=== PATIENT | male | born 1935 | race African-American/Black ===

== ENCOUNTER 2016-12-11 10:16 | Emergency (ER) | payer MEDICARE, OTHER ==
[~2016-12-11] VITALS: Ht 172.7 cm; Wt 95.3 kg
[~2016-12-11 10:16] MED LIST: AMLO10TA2 PO; ATOR10TA PO; ATOR10TA60 PO; FURO20TA3 PO; GLIP10TA13 PO; HYDR-2758 PO; INSU100C SQ; INSU100I11 SQ; INSU100V SQ; INSU100V8 SQ; LISI-338 PO; LOSA100T6 PO; LOVA40TA PO; METF-620 PO; METF850T2 PO; PIOG30TA41 PO; PROM118S2 PO; TRIA1TAB3 PO
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
[2016-12-11 13:39] VITALS: BP 155/75
== END 2016-12-11 13:39 | disposition home or self-care (01) ==
LOC: ER 10:24
DX: M54.2 Cervicalgia (principal); E11.40 Type 2 diabetes mellitus with diabetic neuropathy, unspecified; Z87.891 Personal history of nicotine dependence; V49.49XA Driver injured in collision with other motor vehicles in traffic accident, initial encounter; Y93.89 Activity, other specified; Y99.8 Other external cause status; Y92.410 Unspecified street and highway as the place of occurrence of the external cause
CPT/HCPCS: 72050; 99284

== ENCOUNTER 2017-12-06 07:52 | Inpatient (IN) | payer MEDICARE ==
[2017-12-06] MEDS ORDERED: ERTAPENEM 1GM IVPB FOR OMNI 50 ML IV (08:30)
[2017-12-06 08:34] LABS: POC GLUCOSE 143 mg/dL (70-99)
[2017-12-06] MEDS ORDERED: ERTAPENEM 1 GM IV (09:00)
[2017-12-06] MEDS: IV RINGERS,LACTATED 1000ML 1,000 ML IV (09:01)
[2017-12-06] MEDS ORDERED: DEXAMETHASONE SOD PHOS 4 MG/ML VIAL (10:09)
[2017-12-06] MEDS ORDERED: methylPREDNISolone ACETATE 40 MG/ML VIAL. (10:09)
[2017-12-06] MEDS ORDERED: DEXAMETHASONE SOD PHOS 20 MG/5 ML VIAL. (10:09)
[2017-12-06] MEDS ORDERED: ONDANSETRON PF 4 MG/2 ML VIAL. (10:09)
[2017-12-06] MEDS ORDERED: LIDOCAINE 2% PF Vial for OR 5 ML VIAL. (10:09)
[2017-12-06] MEDS ORDERED: fentaNYL PF VIAL 100 MCG/2 ML VIAL (10:09)
[2017-12-06] MEDS ORDERED: PROPOFOL 20 ML IV (10:09)
[2017-12-06] MEDS ORDERED: POVIDONE-IODINE 10% TOPICAL OINTMENT 28GM TUBE. TP (10:10)
[2017-12-06] MEDS ORDERED: GELATIN SPONGE SIZE 12-7MM SPONGE. (11:02)
[2017-12-06 11:13] LABS: POC GLUCOSE 131 mg/dL (70-99)
[2017-12-06] MEDS: ERTAPENEM 1GM IVPB FOR OMNI 50 ML IV (11:31)
[2017-12-06] MEDS: BUPIVACAINE 0.5% 50 ML VIAL. (11:37)
[2017-12-06] MEDS: LIDOCAINE 1% PF 30 ML VIAL. (11:37)
[2017-12-06] MEDS: THROMBIN TOPICAL 5,000 UNIT VIAL. (12:00)
[2017-12-06] MEDS: GELATIN SPONGE SIZE 100. (12:00)
[2017-12-06] MEDS: SURGICEL FIBRILLAR 1X2 EACH. (12:00)
[2017-12-06] MEDS ORDERED: ZOLPIDEM 5 MG TABLET. PO (13:45)
[2017-12-06] MEDS ORDERED: CALCIUM CARBONATE 500 MG TAB.CHEW PO (13:45)
[2017-12-06] MEDS ORDERED: MAGNESIUM HYDROXIDE 2,400 MG/30 ML ORAL.SUSP. PO (13:45)
[2017-12-06] MEDS ORDERED: ONDANSETRON PF 4 MG/2 ML VIAL. IV (13:45)
[2017-12-06] MEDS ORDERED: HYDROcodone/APAP 5/325MG 1 TAB TABLET PO ×2 (13:45→16:45)
[2017-12-06] MEDS ORDERED: ACETAMINOPHEN 325 MG TABLET. PO (13:45)
[2017-12-06 14:03] LABS: POC GLUCOSE 107 mg/dL (70-99)
[2017-12-06 16:55] LABS: POC GLUCOSE 167 mg/dL (70-99)
[2017-12-06 18:23] LABS: POC GLUCOSE 214 mg/dL (70-99)
[2017-12-06] MEDS: INSULIN LISPRO 300 UNITS/3 ML INSULN.PEN. SQ (18:28)
[2017-12-06] MEDS: HYDROcodone/APAP 5/325MG 1 TAB TABLET PO (18:29)
[2017-12-06 20:35] LABS: POC GLUCOSE 192 mg/dL (70-99)
[2017-12-06] MEDS: ATORVASTATIN CALCIUM 10 MG TABLET. PO (21:27)
[2017-12-06] MEDS: SENNOSIDES/DOCUSATE 8.6/50MG TABLET. PO (21:27)
[2017-12-06] MEDS: INSULIN GLARGINE 300 UNITS/3 ML INSULN.PEN. SQ (21:34)
[2017-12-07 04:46] LABS: ANION GAP 6 (6-14); BLOOD UREA NITROGEN 42 mg/dL (8-26); CALCIUM 8.7 mg/dL (8.5-10.1); CARBON DIOXIDE 26 mmol/L (21-32); CHLORIDE 110 mmol/L (98-107); CREATININE 1.7 mg/dL (0.7-1.3); GLUCOSE 60 mg/dL (70-99); POTASSIUM 5.2 mmol/L (3.5-5.1); SODIUM 142 mmol/L (136-145)
[2017-12-07] MEDS ORDERED: ONDANSETRON PF 4 MG/2 ML VIAL. IV (07:00)
[2017-12-07] MEDS ORDERED: LIDOCAINE 1% PF 2 ML VIAL. ID (07:00)
[2017-12-07] MEDS: IV RINGERS,LACTATED 1000ML 1,000 ML IV (07:00)
[2017-12-07] MEDS ORDERED: MORPHINE SULFATE 2 MG/ML DISP.SYRIN. IV (07:00)
[2017-12-07] MEDS ORDERED: fentaNYL PF VIAL 100 MCG/2 ML VIAL IV ×2 (07:00)
[2017-12-07] MEDS ORDERED: PROCHLORPERAZINE 10 MG/2 ML VIAL. IV (07:00)
[2017-12-07 08:03] LABS: POC GLUCOSE 54 mg/dL (70-99)
[2017-12-07] MEDS: FUROSEMIDE 40 MG TABLET. PO (09:14)
[2017-12-07] MEDS: SENNOSIDES/DOCUSATE 8.6/50MG TABLET. PO ×2 (09:14→20:39)
[2017-12-07 09:15] LABS: POC GLUCOSE 144 mg/dL (70-99)
[2017-12-07] MEDS: amLODIPine BESYLATE 10 MG TABLET PO (09:15)
[2017-12-07] MEDS: LOSARTAN POTASSIUM 50 MG TABLET. PO (09:16)
[2017-12-07] MEDS: INSULIN GLARGINE 300 UNITS/3 ML INSULN.PEN. SQ ×2 (09:23→21:00)
[2017-12-07 11:47] LABS: POC GLUCOSE 115 mg/dL (70-99)
[2017-12-07] MEDS: INSULIN LISPRO 300 UNITS/3 ML INSULN.PEN. SQ ×2 (12:00→17:39)
[2017-12-07 13:03] LABS: POC GLUCOSE 154 mg/dL (70-99)
[2017-12-07] MEDS ORDERED: ERTAPENEM 1 GM in IV NORMAL SALINE 50ML 50 ML IV (14:00)
[2017-12-07] MEDS: MEROPENEM 1 GM in IV NORMAL SALINE 100ML 100 ML IV ×2 (14:47→20:40)
[2017-12-07 16:31] LABS: POC GLUCOSE 175 mg/dL (70-99)
[2017-12-07] MEDS: ATORVASTATIN CALCIUM 10 MG TABLET. PO (20:39)
[2017-12-07 20:50] LABS: POC GLUCOSE 158 mg/dL (70-99)
[2017-12-08 05:37] LABS: ADD MAN DIFF? NO
[2017-12-08 05:41] LABS: BASO % 1 % (0-3); EOS # 0.1 x10^3/uL (0.0-0.7); EOS % 2 % (0-3); HEMATOCRIT 27.5 % (39.0-53.0); HEMOGLOBIN 8.9 g/dL (13.0-17.5); LYMPH # 1.8 x10^3/uL (1.0-4.8); LYMPH % 27 % (24-48); MEAN CORPUSCULAR HEMOGLOBIN 25 pg (25-35); MEAN CORPUSCULAR HGB CONC 32 g/dL (31-37); MEAN CORPUSCULAR VOLUME 78 fL (79-100); MONO # 0.5 x10^3/uL (0.0-1.1); MONO % 7 % (0-9); NEUT # 4.2 x10^3uL (1.8-7.7); NEUT % 64 % (31-73); PLATELET COUNT 176 x10^3/uL (140-400); RED BLOOD COUNT 3.53 x10^6/uL (4.30-5.70); RED CELL DISTRIBUTION WIDTH 16.4 % (11.5-14.5); WHITE BLOOD COUNT 6.6 x10^3/uL (4.0-11.0)
[2017-12-08 06:07] LABS: ANION GAP 5 (6-14); BLOOD UREA NITROGEN 39 mg/dL (8-26); CALCIUM 8.7 mg/dL (8.5-10.1); CARBON DIOXIDE 28 mmol/L (21-32); CHLORIDE 108 mmol/L (98-107); CREATININE 1.6 mg/dL (0.7-1.3); GFR 50.4; GLUCOSE 61 mg/dL (70-99); POTASSIUM 4.6 mmol/L (3.5-5.1); SODIUM 141 mmol/L (136-145)
[2017-12-08] MEDS: INSULIN GLARGINE 300 UNITS/3 ML INSULN.PEN. SQ ×2 (08:00→21:00)
[2017-12-08] MEDS: INSULIN LISPRO 300 UNITS/3 ML INSULN.PEN. SQ ×3 (08:00→17:18)
[2017-12-08 08:10] LABS: POC GLUCOSE 47 mg/dL (70-99)
[2017-12-08] MEDS: MEROPENEM 1 GM in IV NORMAL SALINE 100ML 100 ML IV ×2 (08:47→20:29)
[2017-12-08] MEDS: SENNOSIDES/DOCUSATE 8.6/50MG TABLET. PO ×2 (08:47→20:30)
[2017-12-08] MEDS: amLODIPine BESYLATE 10 MG TABLET PO (08:48)
[2017-12-08] MEDS: LOSARTAN POTASSIUM 50 MG TABLET. PO (08:49)
[2017-12-08] MEDS: FUROSEMIDE 40 MG TABLET. PO (08:51)
[2017-12-08] MEDS ORDERED: ERTAPENEM 1GM IVPB FOR OMNI 50 ML IV (09:00)
[2017-12-08 19:37] LABS: POC GLUCOSE 166 mg/dL (70-99)
[2017-12-08 19:37] LABS: POC GLUCOSE 170 mg/dL (70-99)
[2017-12-08 19:38] LABS: POC GLUCOSE 101 mg/dL (70-99)
[2017-12-08] MEDS: LACTOBACILLUS RHAMNOSUS GG 1 CAPSULE. PO (20:29)
[2017-12-08] MEDS: ATORVASTATIN CALCIUM 10 MG TABLET. PO (20:29)
[2017-12-08 21:16] LABS: POC GLUCOSE 111 mg/dL (70-99)
[2017-12-09 06:11] LABS: ANION GAP 5 (6-14); BLOOD UREA NITROGEN 37 mg/dL (8-26); CALCIUM 8.9 mg/dL (8.5-10.1); CARBON DIOXIDE 27 mmol/L (21-32); CHLORIDE 107 mmol/L (98-107); CREATININE 1.5 mg/dL (0.7-1.3); GFR 54.3; GLUCOSE 60 mg/dL (70-99); POTASSIUM 4.5 mmol/L (3.5-5.1); SODIUM 139 mmol/L (136-145)
[2017-12-09] MEDS: INSULIN LISPRO 300 UNITS/3 ML INSULN.PEN. SQ ×3 (08:00→17:00)
[2017-12-09 08:17] LABS: POC GLUCOSE 60 mg/dL (70-99)
[2017-12-09] MEDS: LOSARTAN POTASSIUM 50 MG TABLET. PO (08:25)
[2017-12-09] MEDS: SENNOSIDES/DOCUSATE 8.6/50MG TABLET. PO ×2 (08:26→20:49)
[2017-12-09] MEDS: FUROSEMIDE 40 MG TABLET. PO (08:26)
[2017-12-09] MEDS: amLODIPine BESYLATE 10 MG TABLET PO (08:26)
[2017-12-09] MEDS: LACTOBACILLUS RHAMNOSUS GG 1 CAPSULE. PO ×2 (08:26→20:49)
[2017-12-09] MEDS: MEROPENEM 1 GM in IV NORMAL SALINE 100ML 100 ML IV ×2 (08:27→20:49)
[2017-12-09 08:32] LABS: POC GLUCOSE 186 mg/dL (70-99)
[2017-12-09 14:12] LABS: ALBUMIN 2.2 g/dL (3.4-5.0); ALBUMIN/GLOBULIN RATIO 0.5 (1.0-1.7); ALK PHOS 180 U/L (46-116); ALT (SGPT) 100 U/L (16-63); ANION GAP 7 (6-14); AST (SGOT) 68 U/L (15-37); BLOOD UREA NITROGEN 37 mg/dL (8-26); BUN/CREATININE RATIO 23 (6-20); C-REACTIVE PROTEIN 32.3 mg/L (0-3.3); CALCIUM 8.6 mg/dL (8.5-10.1); CARBON DIOXIDE 27 mmol/L (21-32); CHLORIDE 105 mmol/L (98-107); CREATININE 1.6 mg/dL (0.7-1.3); GFR 50.4; GLUCOSE 158 mg/dL (70-99); POTASSIUM 4.4 mmol/L (3.5-5.1); SODIUM 139 mmol/L (136-145); TOTAL BILIRUBIN 0.2 mg/dL (0.2-1.0)
[2017-12-09 15:01] LABS: SEDIMENTATION RATE 73 (0-15)
[2017-12-09 16:44] LABS: POC GLUCOSE 121 mg/dL (70-99)
[2017-12-09 17:10] LABS: POC GLUCOSE 78 mg/dL (70-99)
[2017-12-09] MEDS: ATORVASTATIN CALCIUM 10 MG TABLET. PO (20:49)
[2017-12-09] MEDS: INSULIN GLARGINE 300 UNITS/3 ML INSULN.PEN. SQ (21:00)
[2017-12-09 21:19] LABS: POC GLUCOSE 188 mg/dL (70-99)
[2017-12-10 08:00] LABS: POC GLUCOSE 96 mg/dL (70-99)
[2017-12-10] MEDS: INSULIN LISPRO 300 UNITS/3 ML INSULN.PEN. SQ ×3 (08:00→17:08)
[2017-12-10] MEDS: SENNOSIDES/DOCUSATE 8.6/50MG TABLET. PO ×2 (09:50→20:57)
[2017-12-10] MEDS: MEROPENEM 1 GM in IV NORMAL SALINE 100ML 100 ML IV ×2 (09:50→20:56)
[2017-12-10] MEDS: LACTOBACILLUS RHAMNOSUS GG 1 CAPSULE. PO ×2 (09:50→20:57)
[2017-12-10] MEDS: FUROSEMIDE 40 MG TABLET. PO (09:50)
[2017-12-10] MEDS: LOSARTAN POTASSIUM 50 MG TABLET. PO (09:51)
[2017-12-10] MEDS: amLODIPine BESYLATE 10 MG TABLET PO (09:52)
[2017-12-10] MEDS: INSULIN GLARGINE 300 UNITS/3 ML INSULN.PEN. SQ ×2 (09:55→21:02)
[2017-12-10 11:51] LABS: POC GLUCOSE 141 mg/dL (70-99)
[2017-12-10 16:25] LABS: POC GLUCOSE 233 mg/dL (70-99)
[2017-12-10] MEDS: ATORVASTATIN CALCIUM 10 MG TABLET. PO (20:57)
[2017-12-10 21:04] LABS: POC GLUCOSE 207 mg/dL (70-99)
[2017-12-11 07:30] LABS: POC GLUCOSE 96 mg/dL (70-99)
[2017-12-11] MEDS: INSULIN LISPRO 300 UNITS/3 ML INSULN.PEN. SQ ×3 (08:00→18:12)
[2017-12-11] MEDS: amLODIPine BESYLATE 10 MG TABLET PO (08:32)
[2017-12-11] MEDS: SENNOSIDES/DOCUSATE 8.6/50MG TABLET. PO (08:32)
[2017-12-11] MEDS: LOSARTAN POTASSIUM 50 MG TABLET. PO (08:33)
[2017-12-11] MEDS: LACTOBACILLUS RHAMNOSUS GG 1 CAPSULE. PO (08:33)
[2017-12-11] MEDS: INSULIN GLARGINE 300 UNITS/3 ML INSULN.PEN. SQ (08:45)
[2017-12-11] MEDS: MEROPENEM 1 GM in IV NORMAL SALINE 100ML 100 ML IV ×2 (08:47→09:00)
[2017-12-11] MEDS: FUROSEMIDE 40 MG TABLET. PO (08:49)
[2017-12-11 11:09] LABS: POC GLUCOSE 127 mg/dL (70-99)
[2017-12-11 11:12] LABS: ALBUMIN 2.3 g/dL (3.4-5.0); ALBUMIN/GLOBULIN RATIO 0.5 (1.0-1.7); ALK PHOS 189 U/L (46-116); ALT (SGPT) 130 U/L (16-63); ANION GAP 7 (6-14); AST (SGOT) 88 U/L (15-37); BLOOD UREA NITROGEN 36 mg/dL (8-26); BUN/CREATININE RATIO 24 (6-20); CALCIUM 9.1 mg/dL (8.5-10.1); CARBON DIOXIDE 26 mmol/L (21-32); CHLORIDE 106 mmol/L (98-107); CREATININE 1.5 mg/dL (0.7-1.3); GFR 54.3; GLUCOSE 149 mg/dL (70-99); POTASSIUM 4.4 mmol/L (3.5-5.1); SODIUM 139 mmol/L (136-145); TOTAL BILIRUBIN 0.3 mg/dL (0.2-1.0); TOTAL PROTEIN 7.4 g/dL (6.4-8.2)
[2017-12-11 17:07] LABS: POC GLUCOSE 206 mg/dL (70-99)
[2017-12-11] MEDS: ERTAPENEM 1GM IVPB FOR OMNI 50 ML IV (19:18)
== END 2017-12-11 20:30 | disposition home health service (06) | DRG 616 ==
LOC: SURG 07:52 → 4 NORTH 13:20
PROVIDERS: Family Medicine
PROC: 0Y6M0ZF Detachment at Right Foot, Partial 5th Ray, Open Approach (ICD-10-PCS; principal; 2017-12-06 11:30)
DX: E11.69 Type 2 diabetes mellitus with other specified complication (principal); E43 Unspecified severe protein-calorie malnutrition; M86.171 Other acute osteomyelitis, right ankle and foot; I50.32 Chronic diastolic (congestive) heart failure; I13.0 Hypertensive heart and chronic kidney disease with heart failure and stage 1 through stage 4 chronic kidney disease, or unspecified chronic kidney disease; N17.9 Acute kidney failure, unspecified; E78.5 Hyperlipidemia, unspecified; E66.9 Obesity, unspecified; E78.00 Pure hypercholesterolemia, unspecified; E11.621 Type 2 diabetes mellitus with foot ulcer; L97.519 Non-pressure chronic ulcer of other part of right foot with unspecified severity; E11.42 Type 2 diabetes mellitus with diabetic polyneuropathy; N18.3 Chronic kidney disease, stage 3 (moderate); E11.22 Type 2 diabetes mellitus with diabetic chronic kidney disease; E11.649 Type 2 diabetes mellitus with hypoglycemia without coma; I87.8 Other specified disorders of veins; N40.1 Benign prostatic hyperplasia with lower urinary tract symptoms; R33.8 Other retention of urine; Z83.3 Family history of diabetes mellitus; Z87.891 Personal history of nicotine dependence
CPT/HCPCS: 36415; 74150; 80048; 80053; 82962; 85025; 85651; 86140; 87071; 87075; 88304; 88305; 88311; 97110-GO; 97110-GP; 97116-GP; 97161-GP; 97166-GO; 97530-GP; A7015; G0379; J1030; J1100; J1335; J1815; J2001; J2185; J2405; J2704; J3010; J3490

== ENCOUNTER → 2018-07-15 | Outpatient (CLI) | payer MEDICARE ==
[2018-06-04 11:52] VITALS: BP 163/70
[~2018-07-15] MED LIST changes: -AMLO10TA2 PO; +AMLO10TA6 PO; +FURO40TA4 PO; -HYDR-2758 PO; +HYDR-2761 PO; +INSU100I13 SQ; +LOSA-73 PO; +LOSA100T14 PO; -LOSA100T6 PO; -METF-620 PO; +METF10007 PO; -METF850T2 PO; +METF850T8 PO; -PROM118S2 PO; +PROM118S5 PO
== END | disposition home or self-care (01) ==
LOC: LAB 13:12
PROVIDERS: ATTEND Internal Medicine Nephrology
DX: E87.5 Hyperkalemia (principal)
CPT/HCPCS: 36415; 84132

== ENCOUNTER → 2019-01-09 | Outpatient (CLI) | payer MEDICARE ==
[2018-06-04 11:52] VITALS: BP 163/70
[~2019-01-09] MED LIST changes: -AMLO10TA6 PO; +AMLO10TA8 PO
--- NOTE | 2019-01-10 16:58 | RAD ---
Exam:Left ribs with AP chest Date: 01/09/2019 5:44 PM Comparison: No prior Indication: Chest wall pain Findings/ Impression: The heart is not enlarged. Mediastinal and hilar contours are normal. Moderate right pleural effusion with associated right lung base opacities likely atelectasis although consolidation is not excluded. No pneumothorax. AP, Oblique and Spot images of left ribs demonstrated a subacute, healing fracture of the left lateral seventh rib. Trace associated focal pleural elevation. Symmetrical intercostal spacing. Electronically signed by: Sarmad Weston MD (01/10/2019 4:55 PM) [facility]
== END | disposition home or self-care (01) ==
LOC: RAD 17:04
PROVIDERS: ATTEND Family Medicine
DX: S22.32XA Fracture of one rib, left side, initial encounter for closed fracture (principal); W19.XXXA Unspecified fall, initial encounter; Y93.89 Activity, other specified; Y92.89 Other specified places as the place of occurrence of the external cause; Y99.8 Other external cause status
CPT/HCPCS: 71101

== ENCOUNTER → 2021-09-20 | Outpatient (CLI) | payer MEDICARE ==
[2018-06-04 11:52] VITALS: BP 163/70
[~2021-09-20] MED LIST changes: +AMLO-187 PO; -AMLO10TA8 PO; -INSU100V SQ; +INSU100V6 SQ; -LISI-338 PO; +LISI5TAB15 PO
--- NOTE | 2021-09-20 15:21 | KCIC ---
EXAMINATION: XR CHEST 2V CLINICAL HISTORY: COPD. EXAM DATE/TIME: 09/20/2021 2:24 PM COMPARISON: Left rib radiographs 01/09/2019 FINDINGS: Lines, Tubes, and Devices: Right-sided dual-chamber cardiac pacemaker. Cardiomediastinal Silhouette: Normal heart size. Aortic atherosclerotic calcification. Lungs and Pleura: Chronic elevation of the right hemidiaphragm with overlying subsegmental atelectasi s and/or scarring, similar to prior study. Left lung essentially clear. No evidence of pleural effusi on. Bones and Soft Tissues: No acute osseous abnormality. IMPRESSION: No evidence of acute cardiopulmonary abnormality. Chronic elevation of the right hemidiaphragm with overlying subsegmental atelectasis and/or scarring. Electronically signed by: Montana Garcia DO (09/20/2021 3:19 PM) [id number]
== END ==
LOC: KCIC 14:20
PROVIDERS: ATTEND Family Medicine
DX: I70.0 Atherosclerosis of aorta (principal); J98.6 Disorders of diaphragm; J44.9 Chronic obstructive pulmonary disease, unspecified; Z95.0 Presence of cardiac pacemaker
CPT/HCPCS: 71046